=== PATIENT | female | born 1940 | race Caucasian/White ===

== ENCOUNTER → 2016-07-15 | Outpatient (CLI) | payer MEDICARE | END | disposition home or self-care (01) | LOC: RAD 14:22 | PROVIDERS: ATTEND Internal Medicine | DX: R05 Cough (principal) | CPT/HCPCS: 71020 ==

== ENCOUNTER → 2017-06-13 | Outpatient (CLI) | payer MEDICARE | END | disposition home or self-care (01) | LOC: CVU 13:36 | PROVIDERS: ATTEND Nurse Practitioner Family | DX: I35.0 Nonrheumatic aortic (valve) stenosis (principal); Z87.891 Personal history of nicotine dependence | CPT/HCPCS: 93306 ==

== ENCOUNTER 2017-07-21 11:34 | Day surgery (SDC) | payer MEDICARE ==
[~2017-07-21] VITALS: Ht 162.6 cm; Wt 63.6 kg
[2017-07-21] MEDS ORDERED: LOSA100T6 PO (12:29)
[2017-07-21] MEDS ORDERED: GING550C2 PO (12:29)
[2017-07-21] MEDS ORDERED: MULT-123 PO (12:29)
[2017-07-21] MEDS ORDERED: UBID10CA5 PO (12:29)
[2017-07-21] MEDS ORDERED: AMLO5TAB2 PO (12:29)
[2017-07-21] MEDS ORDERED: NEBI10TA3 PO (12:29)
[2017-07-21] MEDS ORDERED: EZET10TA18 PO (12:29)
[2017-07-21] MEDS ORDERED: [UNRECOGNIZED DRUG - OTHER] PO (12:30)
[2017-07-21] MEDS ORDERED: FENTANYL PF 100 MCG/2ML ONE (13:30)
[2017-07-21] MEDS ORDERED: LIDOCAINE 2%, 2ML ONE (13:30)
[2017-07-21] MEDS ORDERED: HEPARIN 1,000 UNITS/ML, 10ML ONE (13:30)
[2017-07-21] MEDS ORDERED: MIDAZOLAM 1 MG/ML, 5ML ONE (13:30)
[2017-07-21] MEDS ORDERED: VERAPAMIL 2.5 MG/ML, 2ML ONE (13:30)
[2017-07-21] MEDS ORDERED: LIDOCAINE 2%, 10ML ONE (13:59)
== END 2017-07-21 16:48 | disposition home or self-care (01) ==
LOC: CACL 11:34
PROVIDERS: ATTEND Internal Medicine Cardiovascular Disease
DX: I25.10 Atherosclerotic heart disease of native coronary artery without angina pectoris (principal); I65.29 Occlusion and stenosis of unspecified carotid artery; I10 Essential (primary) hypertension; E78.5 Hyperlipidemia, unspecified; Z86.73 Personal history of transient ischemic attack (TIA), and cerebral infarction without residual deficits; Z79.82 Long term (current) use of aspirin; Z88.8 Allergy status to other drugs, medicaments and biological substances; Z87.440 Personal history of urinary (tract) infections
CPT/HCPCS: 75625; 93454; 99156; C1760; C1894; J2250; J3010; J3490; Q9967; J1644

== ENCOUNTER → 2017-08-18 | Outpatient (CLI) | payer MEDICARE ==
[~2017-08-18] MED LIST: AMLO5TAB2 PO; EZET10TA18 PO; GING550C2 PO; LOSA100T6 PO; MULT-123 PO; NEBI10TA3 PO; OMNIPAQUE 350 MG/ML, 150 ML BOTTLE ONE; UBID10CA5 PO; [UNRECOGNIZED DRUG - OTHER] PO
== END | disposition home or self-care (01) ==
LOC: RAD 09:47
PROVIDERS: ATTEND Internal Medicine Cardiovascular Disease
DX: I65.23 Occlusion and stenosis of bilateral carotid arteries (principal); I35.0 Nonrheumatic aortic (valve) stenosis; E78.5 Hyperlipidemia, unspecified
CPT/HCPCS: 71275; 74174; 93880; 94010; 94726; 94729; Q9967

== ENCOUNTER 2017-09-06 06:10 | Inpatient (IN) | payer MEDICARE ==
[~2017-09-06] VITALS: Ht 162.6 cm; Wt 64.8 kg
[~2017-09-06 06:10] MED LIST changes: -OMNIPAQUE 350 MG/ML, 150 ML BOTTLE ONE
[2017-09-06] MEDS ORDERED: SODIUM CHLORIDE 0.9% 1,000 ML IV ONE (06:19)
[2017-09-06 06:28] VITALS: BP 138/67
[2017-09-06] MEDS ORDERED: CHLORHEXIDINE 15 ML BOTTLE MM PRN (06:30)
[2017-09-06] MEDS ORDERED: ONDANSETRON 2MG/ML, 2ML IVPush PRN ×2 (06:30→09:30)
[2017-09-06] MEDS ORDERED: FENTANYL PF 250 MCG/5ML ONE (06:48)
[2017-09-06 06:49] LABS: BASOPHILS # (AUTO) 0.04 x10^3/uL (0-0.1); BASOPHILS % (AUTO) 1 % (0-1); EOSINOPHILS # (AUTO) 0.22 x10^3/uL (0-0.4); EOSINOPHILS % (AUTO) 3 % (1-7); LYMPHOCYTES # (AUTO) 2.83 x10^3/uL (1-3.4); LYMPHOCYTES % (AUTO) 33 % (22-44); MD NO; MEAN CORPUSCULAR HEMOGLOBIN 30.2 pg (27.0-34.8); MEAN CORPUSCULAR HGB CONC 33.6 g/dL (32.4-35.8); MEAN CORPUSCULAR VOLUME 89.7 fL (80-100); MEAN PLATELET VOLUME 6.6 fL (7.4-10.4); MONOCYTES # (AUTO) 1.14 x10^3/uL (0.2-0.8); MONOCYTES % (AUTO) 13 % (2-9); NEUTROPHILS # (AUTO) 4.47 x10^3/uL (1.8-6.8); NEUTROPHILS % (AUTO) 51 % (42-75); PLATELET COUNT 325 x10^3/uL (130-400); RED BLOOD COUNT 4.59 x10^6/uL (3.82-5.3); RED CELL DISTRIBUTION WIDTH 13.1 % (9.6-15.2)
[2017-09-06] MEDS ORDERED: PLEASE ENTER HEIGHT AND WEIGHT MC SCH (07:00)
[2017-09-06 07:06] LABS: ALANINE AMINOTRANSFERASE 23 U/L (12-78); ALBUMIN 3.5 g/dL (3.4-5.0); ANION GAP 6 mmol/L (5-15); CALCIUM 8.5 mg/dL (8.5-10.1); CHLORIDE 108 mmol/L (98-107); CREATININE 1.01 mg/dL (0.55-1.02)
[2017-09-06 07:10] LABS: INTERNATIONAL NORMALIZED RATIO 0.99 (0.93-1.1); PROTHROMBIN TIME 10.2 Seconds (9.6-11.5)
[2017-09-06 07:24] LABS: ALKALINE PHOSPHATASE 77 U/L (45-117); BILIRUBIN,TOTAL 0.7 mg/dL (0.2-1.0); TOTAL PROTEIN 6.6 g/dL (6.4-8.2)
[2017-09-06] MEDS ORDERED: PROTAMINE SULFATE 10 MG/ML, 5ML ONE (08:19)
[2017-09-06] MEDS ORDERED: HEPARIN 1,000 UNITS/ML, 10ML ONE (08:19)
[2017-09-06] MEDS ORDERED: SUCCINYLCHOLINE 20 MG/ML, 10ML ONE (08:24)
[2017-09-06] MEDS ORDERED: ROCURONIUM 10MG/ML,5ML ONE (08:24)
[2017-09-06] MEDS ORDERED: DEXAMETHASONE 4 MG/ML, 1ML ONE (08:24)
[2017-09-06] MEDS ORDERED: PROPOFOL 10 MG/ML, 20ML ONE (08:24)
[2017-09-06] MEDS ORDERED: ACETAMINOPHEN 325 MG TABLET PO PRN (09:30)
[2017-09-06] MEDS: LOSARTAN 50MG TABLET PO SCH (09:55)
[2017-09-06] MEDS: AMLODIPINE 5 MG TABLET PO SCH (09:55)
[2017-09-06 17:22] VITALS: BP 115/57
[2017-09-06 20:24] VITALS: BP 130/71
[2017-09-06] MEDS ORDERED: CLOPIDOGREL 300 MG TABLET PO ONE (21:00)
[2017-09-06] MEDS: HYDROcodone/APAP 5/325 TABLET PO PRN (21:44)
[2017-09-06] MEDS: NEBIVOLOL HCL 5 MG TABLET PO SCH (21:45)
[2017-09-06 23:55] VITALS: BP 115/62
[2017-09-07] MEDS: HYDROcodone/APAP 5/325 TABLET PO PRN ×2 (03:05→09:14)
[2017-09-07 05:13] LABS: MEAN CORPUSCULAR HEMOGLOBIN 30.7 pg (27.0-34.8); MEAN CORPUSCULAR HGB CONC 33.9 g/dL (32.4-35.8); MEAN CORPUSCULAR VOLUME 90.6 fL (80-100); MEAN PLATELET VOLUME 6.7 fL (7.4-10.4); PLATELET COUNT 216 x10^3/uL (130-400); RED BLOOD COUNT 3.72 x10^6/uL (3.82-5.3); RED CELL DISTRIBUTION WIDTH 13.2 % (9.6-15.2)
[2017-09-07 05:16] LABS: ALBUMIN 2.9 g/dL (3.4-5.0); ANION GAP 6 mmol/L (5-15); CALCIUM 7.6 mg/dL (8.5-10.1); CHLORIDE 109 mmol/L (98-107); CREATININE 0.79 mg/dL (0.55-1.02)
[2017-09-07 05:55] LABS: BASOPHILS # (AUTO) 0.03 x10^3/uL (0-0.1); BASOPHILS % (AUTO) 0 % (0-1); EOSINOPHILS # (AUTO) 0.02 x10^3/uL (0-0.4); EOSINOPHILS % (AUTO) 0 % (1-7); LYMPHOCYTES # (AUTO) 2.11 x10^3/uL (1-3.4); LYMPHOCYTES % (AUTO) 15 % (22-44); MD SCAN; MONOCYTES # (AUTO) 1.65 x10^3/uL (0.2-0.8); MONOCYTES % (AUTO) 12 % (2-9); NEUTROPHILS # (AUTO) 10.22 x10^3/uL (1.8-6.8); NEUTROPHILS % (AUTO) 73 % (42-75)
[2017-09-07 06:50] VITALS: BP 127/67
[2017-09-07] MEDS ORDERED: CEFAZOLIN 1,000 MG ONE (07:49)
[2017-09-07] MEDS ORDERED: EZETIMIBE 10 MG TABLET PO SCH (09:00)
[2017-09-07] MEDS ORDERED: ASPIRIN 81 MG TABLET EC PO SCH (09:00)
[2017-09-07] MEDS: NEBIVOLOL HCL 5 MG TABLET PO SCH (09:00)
[2017-09-07] MEDS: AMLODIPINE 5 MG TABLET PO SCH (09:00)
[2017-09-07] MEDS: LOSARTAN 50MG TABLET PO SCH (09:00)
[2017-09-07] MEDS ORDERED: CLOPIDOGREL 75 MG TABLET PO SCH (09:00)
[2017-09-07] MEDS ORDERED: ASPI-621 PO (11:33)
[2017-09-07] MEDS ORDERED: CLOP75TA PO (11:33)
[2017-09-07 12:30] VITALS: BP 166/80
== END 2017-09-07 16:48 | disposition home or self-care (01) | DRG 266 ==
LOC: ORIP 06:10 → CSU 09:19 → 5SO 17:14
PROVIDERS: ADMIT Internal Medicine Cardiovascular Disease; ATTEND Internal Medicine Cardiovascular Disease
PROC: B24BZZ4 Ultrasonography of Heart with Aorta, Transesophageal (ICD-10-PCS; 2017-09-06)
PROC: 02RF38Z Replacement of Aortic Valve with Zooplastic Tissue, Percutaneous Approach (ICD-10-PCS; principal; 2017-09-06 07:30)
DX: I35.0 Nonrheumatic aortic (valve) stenosis (principal); Z00.6 Encounter for examination for normal comparison and control in clinical research program; I50.33 Acute on chronic diastolic (congestive) heart failure; E78.5 Hyperlipidemia, unspecified; I10 Essential (primary) hypertension; I25.10 Atherosclerotic heart disease of native coronary artery without angina pectoris; E78.00 Pure hypercholesterolemia, unspecified; Z87.891 Personal history of nicotine dependence
CPT/HCPCS: 33361; 36415; 80048; 80053; 82040; 83880; 85025; 85347; 85610; 85730; 86850; 86900; 86923; 87081; 93005; 93306; 93312; 93321; 93325; 93355; C1760; C1769; C1894; J0690; J1100; J1644; J2405; J2704; J2720; J3010; J0330; J7030; Q9967

== ENCOUNTER → 2017-10-04 | Outpatient (CLI) | payer MEDICARE ==
[~2017-10-04] MED LIST changes: +ASPI-621 PO; +CLOP75TA PO
== END | disposition home or self-care (01) ==
LOC: CVU 13:08
PROVIDERS: ATTEND Internal Medicine Cardiovascular Disease
DX: I35.0 Nonrheumatic aortic (valve) stenosis (principal)
CPT/HCPCS: 93306

== ENCOUNTER → 2018-09-12 | Outpatient (CLI) | payer MEDICARE ==
[~2018-09-12] MED LIST changes: +AMLO-150 PO; -AMLO5TAB2 PO; -ASPI-621 PO; +ASPI81TA45 PO; +LOSA100T14 PO; -LOSA100T6 PO
== END | disposition home or self-care (01) ==
LOC: CVU 11:26
PROVIDERS: ATTEND Internal Medicine Cardiovascular Disease
DX: I34.0 Nonrheumatic mitral (valve) insufficiency (principal)
CPT/HCPCS: 93306

== ENCOUNTER → 2019-09-27 | Outpatient (CLI) | payer MEDICARE ==
[~2019-09-27] MED LIST changes: -EZET10TA18 PO; +EZET10TA70 PO
== END | disposition home or self-care (01) ==
LOC: CVU 13:23
PROVIDERS: ATTEND Internal Medicine Cardiovascular Disease
DX: I08.8 Other rheumatic multiple valve diseases (principal)
CPT/HCPCS: 93306